=== PATIENT | female | born 1960 | race Caucasian/White ===

== ENCOUNTER → 2024-04-19 13:26 | Outpatient (CLI) | payer BC, SELFPAY ==
--- NOTE | 2024-04-19 13:32 | DI.MRI.S_ITS ---
PROCEDURE: MR SHOULDER RT WO CON INDICATIONS: PRIMARY OSTEOARTHRITIS OF RT SHOULDER TECHNIQUE: Noncontrast oblique coronal T2 fast spin echo with fat saturation, oblique sagittal T1 spin echo and T2 fast spin echo with fat saturation, axial T1 spin echo and T2 fast spin echo with fat saturation through the shoulder. COMPARISON: [facility], CR, XR SHOULDER 2+ VIEWS RIGHT, 01/19/2024, 10:18. FINDINGS: Image quality: Diagnostic Rotator cuff: Bulk: Mild scattered atrophy. Teres minor: Intact Supraspinatus: Moderate tendinopathy and multifocal intrasubstance and articular surface tears at the footplate and mid tendon. Infraspinatus: Mild tendinopathy. Subscapularis: Moderate tendinopathy. Partial-thickness tear at the articular surface in the mid tendon. Bones and bursae: GH joint: Mild effusion. Intra-articular debris, particularly in the subcoracoid region, with intra-articular bodies measuring up to 1 cm and 1.3 cm. Moderate degenerative changes, with joint space narrowing and osteophytes. No subchondral edema AC joint: Moderate degenerative changes Humeral head: No acute fracture Scapula and acromion: No acute fracture Bursa: Mild edema Capsule: Labrum: Circumferential degeneration, especially at the posterior labrum. Mild signal abnormality and edema in the superior labrum. Long head biceps tendon: Signal abnormality extends into the intra-articular biceps tendon IGHL: Unremarkable Rotator interval: Effaced with edema Soft tissues: No axillary adenopathy. Lungs are not well seen. IMPRESSION: Moderate acromioclavicular and glenohumeral degenerative changes. Mild effusion of the glenohumeral joint, with numerous intra-articular bodies measuring up to 1.3 cm. Mild edema of the subacromial/subdeltoid bursa. Moderate rotator cuff tendinopathy described above and multifocal partial-thickness tears, especially at the supraspinatus. Degenerative changes of the labrum, especially at the posterior aspect. Probable small superior labral tear also involving the biceps anchor. Dictated by: Ariel Milner M.D. on 04/20/2024 at 9:05 Approved by: Ariel Milner M.D. on 04/20/2024 at 9:10
== END ==
LOC: MRI 13:30
PROVIDERS: PCP Family Medicine Addiction Medicine; Referring Provider Orthopaedic Surgery; Visit Provider Orthopaedic Surgery
DX: M75.111 Incomplete rotator cuff tear or rupture of right shoulder, not specified as traumatic (principal); M19.011 Primary osteoarthritis, right shoulder; M25.411 Effusion, right shoulder; M24.011 Loose body in right shoulder
CPT/HCPCS: 73221

== ENCOUNTER → 2025-04-08 09:37 | Outpatient (CLI) | payer MEDICARE, BC, SELFPAY ==
--- NOTE | 2025-04-08 09:39 | DI.MRI.S_ITS ---
PROCEDURE: MR SHOULDER RT WO CON
== END ==
PROVIDERS: PCP Family Medicine Addiction Medicine; Referring Provider Orthopaedic Surgery; Visit Provider Orthopaedic Surgery
DX: M19.011 Primary osteoarthritis, right shoulder (principal); M75.41 Impingement syndrome of right shoulder; M75.111 Incomplete rotator cuff tear or rupture of right shoulder, not specified as traumatic; S43.491A Other sprain of right shoulder joint, initial encounter
CPT/HCPCS: 73221